=== PATIENT | male | born 1980 | race Caucasian/White ===

== ENCOUNTER 2020-03-26 03:15 | Inpatient (IN) | payer OTHER ==
[~2020-03-26] VITALS: Ht 170.2 cm; Wt 59.0 kg
--- NOTE | 2020-03-26 03:15 | NUR ---
JESSICA LI, PREBOOK. TAKEN TO CHAIR A
[2020-03-26 03:20] VITALS: BP 132/88
--- NOTE | 2020-03-26 03:30 | NUR ---
PT BIB [place] [employer] for rapid heart rate. PT denies CP or SOB
--- NOTE | 2020-03-26 03:38 | NUR ---
EKG BEING PERFORMED AT BEDSIDE.
--- NOTE | 2020-03-26 03:41 | NUR ---
Dr. Amaya examining patient.
--- NOTE | 2020-03-26 04:05 | NUR ---
PT MOVED TO ER BED 6
--- NOTE | 2020-03-26 04:06 | NUR ---
X-Ray at bedside.
[2020-03-26] MEDS ORDERED: NACL 0.9% 1,000 ML IV ONE (04:10)
[2020-03-26 04:22] LABS: BASOPHILS # (AUTO) 0.1 K/uL (0.00-0.22); BASOPHILS % (AUTO) 0.8 % (0.0-2.0); EOSINOPHILS # (AUTO) 0.1 K/uL (0-0.4); EOSINOPHILS % (AUTO) 0.5 % (0.0-4.0); HEMATOCRIT 51.5 % (36-52); HEMOGLOBIN 17.6 g/dL (12.0-18.0); LYMPHOCYTES # (AUTO) 3.1 K/uL (2.0-11.5); LYMPHOCYTES % (AUTO) 29.6 % (20.5-51.1); MEAN CORPUSCULAR HEMOGLOBIN 32 pg (27-31); MEAN CORPUSCULAR HGB CONC 34 g/dL (33-37); MEAN CORPUSCULAR VOLUME 93.4 fL (80-94); MONOCYTES # (AUTO) 0.8 K/uL (0.8-1.0); MONOCYTES % (AUTO) 7.9 % (1.7-9.3); NEUTROPHILS # (AUTO) 6.3 K/uL (1.8-7.7); NEUTROPHILS % (AUTO) 61.2 % (42.2-75.2); PLATELET COUNT (AUTO) 332 K/uL (140-450); RED BLOOD CELL COUNT(AUTO) 5.51 MIL/uL (4.20-6.10); RED CELL DISTRIBUTION WIDTH 13.2 % (11.6-13.7); WHITE BLOOD COUNT (AUTO) 10.3 K/uL (4.8-10.8)
[2020-03-26 04:40] LABS: ANION GAP 19.2 (8-16); CARBON DIOXIDE 20.3 mmol/L (21-32); CREATININE 1.1 mg/dL (0.6-1.3); POTASSIUM 3.5 mmol/L (3.5-5.1)
[2020-03-26 04:46] LABS: ALBUMIN 4.5 g/dL (3.4-5.0); TOTAL BILIRUBIN 0.5 mg/dL (0.0-1.0)
--- NOTE | 2020-03-26 05:06 | NUR ---
PT sleeping in bed, arousable to light touch, AAOx4, PT has no complaints at this time. Officer Norah and Officer Daphney of [facility] at bedside.
--- NOTE | 2020-03-26 05:45 | NUR ---
PER ANNEMARIE LI PT RELASED INTO HOSPITAL'S CARE AND CLEARED BY PD. [place] [facility]- OFFICER NEIL STATED PT WILL RECIVE A TICKET AND COURT DATE FOR WHEN HE IS TO SHOW UP TO COURT. PER J[facility] LI NO CALL NEEDS TO BE MADE DURING PT D/C.
--- NOTE | 2020-03-26 06:51 | NUR ---
ENDORSED TO CHARGE NURSE LUIS THAT [place] [employer] DOES NOT NEED TO BE CALLED WHEN PT IS D/C.
--- NOTE | 2020-03-26 06:54 | NUR ---
GAVE REPORT TO LUIS ROWLAND AND RECIVED BED FOR PT. PT WILL BE GOING TO BED 125 A.
[2020-03-26 07:12] VITALS: BP 118/79
--- NOTE | 2020-03-26 07:12 | NUR ---
Patient will be admitted to care of [facility]. Admited to TELE. Will go to room 125A. Belongings list completed. Report to [place] R[place].
--- NOTE | 2020-03-26 07:12 | NUR ---
RECEIVED REPORT FROM ER NURSE, PT AMBULATED TO BED, PT IS STABLE, AAOX4, NO SIGNS OF DISTRESS NOTED, RESPIRATIONS ARE EVEN AND UNLABORED ON ROOM AIR, PT HAS LEFT FA 18G INFUSING NS AT 100ML/H PER ER NURSE, PT INTRODUCE TO ROOM, BED IN LOW POSITION, SAFETY MEASURES IN PLACE
[2020-03-26 08:00] VITALS: BP 108/52
[2020-03-26] MEDS ORDERED: MORPHINE SULFATE 2 MG/ML SYR IVP PRN (08:45)
[2020-03-26] MEDS ORDERED: LORazepam 2 MG/ML VIAL IM/IVP PRN (08:45)
[2020-03-26] MEDS ORDERED: POTASSIUM CHLORIDE 10 MEQ TABER PO PRN (08:45)
[2020-03-26] MEDS ORDERED: MAG SULF 2000 MG/WATER PREMIX 50 ML IV PRN (08:45)
[2020-03-26] MEDS ORDERED: DOCUSATE SODIUM 100 MG GELCAP PO PRN (08:45)
[2020-03-26] MEDS ORDERED: ONDANSETRON 4 MG/2 ML VIAL IM/IVP PRN (08:45)
[2020-03-26] MEDS ORDERED: ACETAMINOPHEN 325 MG TAB PO PRN (08:45)
[2020-03-26] MEDS ORDERED: ZOLPIDEM 5 MG TAB PO PRN (08:45)
[2020-03-26] MEDS ORDERED: HYDROcodone/APAP 5/325 MG 1 TAB TAB PO PRN (08:45)
[2020-03-26] MEDS ORDERED: NITROGLYCERIN 0.4 MG TAB SL PRN (08:45)
--- NOTE | 2020-03-26 08:45 | NUR ---
PATIENT HAS BEEN SCREENED AND CATEGORIZED MODERATE NUTRITION RISK. PATIENT WILL BE SEEN WITHIN 3-5 DAYS OF ADMISSION. 03/29/20 - 03/31/20 ARNIE NINO MBA, RD
[2020-03-26 09:23] LABS: PROTHROMBIN TIME 9.9 secs (10.8-13.4)
[2020-03-26 09:37] LABS: CHOL/HDL RATIO 3.5 (1-4.5); MAGNESIUM 2.2 mg/dL (1.8-2.4); PHOSPHORUS 4.5 mg/dL (2.5-4.9); THYROID STIMULATING HORMONE 0.67 uIU/mL (0.34-3.74)
[2020-03-26] MEDS: METOPROLOL 25 MG TAB PO SCH ×2 (09:41→20:18)
[2020-03-26] MEDS: ASPIRIN 325 MG TAB PO SCH (09:42)
[2020-03-26] MEDS: lisinopriL 5 MG TAB PO SCH (09:42)
[2020-03-26] MEDS: INDOMETHACIN 25 MG CAP PO SCH ×3 (09:43→16:59)
--- NOTE | 2020-03-26 09:51 | NUR ---
administered SCHEDULED MEDICATION, MEDICATION EDUCATION GIVEN, PT TOLERATED MEDICATION WELL, PT IS STABLE, CALL LIGHT WITHIN REACH.
--- NOTE | 2020-03-26 11:30 | NUR ---
PT RESTING IN BED, NO SIGNS OF DISTRESS NOTED, CALL LIGHT WITHIN REACH.
[2020-03-26 12:00] VITALS: BP 149/91
--- NOTE | 2020-03-26 13:23 | NUR ---
ADMINISTERED SCHEDULED MEDICATION, MEDICATION EDUCATION GIVEN, PT VERBALIZED UNDERSTANDING, PT TOLERATED WELL, PT IS STABLE, CALL LIGHT WITHIN REACH.
--- NOTE | 2020-03-26 15:00 | NUR ---
PT RESTING IN ROOM TALKING ON THE PHONE, PT IS STABLE, NO SIGNS OF DISTRESS NOTED, RESPIRATIONS ARE EVEN AND UNLABORED ON ROOM AIR, CALL LIGHT WITHIN REACH.
[2020-03-26 16:00] VITALS: BP 113/72
--- NOTE | 2020-03-26 17:00 | NUR ---
ADMINISTERED SCHEDULED MEDICATION, MEDICATION EDUCATION GIVEN, PT VERBALIZED UNDERSTANDING, PT TOLERATED WELL, PT IS STABLE, NO SIGNS OF DISTRESS NOTED, CALL LIGHT WITHIN REACH.
--- NOTE | 2020-03-26 19:18 | NUR ---
ENDORSE PT TO NIGHT NURSE FOR CONTINUITY OF CARE, PT IS STABLE
--- NOTE | 2020-03-26 19:19 | NUR ---
RECEIVED BEDSIDE ENDORSEMENT FROM JANETT GUZMAN. PATIENT LYING IN BED SEMI FOWLERS, NO SOB, DENIES PAIN SAFETY MEASURES IN PLACE, PLAN OF CARE DISCUSSED, CALL LIGHT WITHIN REACH.
[2020-03-26 20:00] VITALS: BP 151/98
[2020-03-26] MEDS: ATORVASTATIN 20 MG TAB PO SCH (20:17)
--- NOTE | 2020-03-26 20:26 | NUR ---
DUE MEDS ADMINISTERED ORDERED, TOLERATED WELL.
[2020-03-27] VITALS: BP 97/62
--- NOTE | 2020-03-27 | NUR ---
V/S TAKEN, DENIES PAIN, NO SOB, KEPT COMFORTABLE, CALL LIGHT WITHIN REACH.
[2020-03-27 04:00] VITALS: BP 106/61
--- NOTE | 2020-03-27 04:00 | NUR ---
V/S TAKEN, WNL. NO SOB, DENIES PAIN, CALL LIGHT WITHIN REACH.
[2020-03-27 06:03] LABS: BASOPHILS % (AUTO) 0.6 % (0.0-2.0); EOSINOPHILS # (AUTO) 0.2 K/uL (0-0.4); EOSINOPHILS % (AUTO) 3.5 % (0.0-4.0); HEMATOCRIT 44.5 % (36-52); HEMOGLOBIN 15.4 g/dL (12.0-18.0); LYMPHOCYTES # (AUTO) 2.8 K/uL (2.0-11.5); LYMPHOCYTES % (AUTO) 40.5 % (20.5-51.1); MEAN CORPUSCULAR HEMOGLOBIN 32 pg (27-31); MEAN CORPUSCULAR HGB CONC 35 g/dL (33-37); MEAN CORPUSCULAR VOLUME 92.5 fL (80-94); MONOCYTES # (AUTO) 0.7 K/uL (0.8-1.0); MONOCYTES % (AUTO) 10.4 % (1.7-9.3); NEUTROPHILS # (AUTO) 3.1 K/uL (1.8-7.7); PLATELET COUNT (AUTO) 293 K/uL (140-450); RED BLOOD CELL COUNT(AUTO) 4.82 MIL/uL (4.20-6.10); RED CELL DISTRIBUTION WIDTH 13.5 % (11.6-13.7); WHITE BLOOD COUNT (AUTO) 6.8 K/uL (4.8-10.8)
[2020-03-27 06:27] LABS: CARBON DIOXIDE 24.4 mmol/L (21-32); CREATININE 0.8 mg/dL (0.6-1.3); POTASSIUM 3.4 mmol/L (3.5-5.1)
--- NOTE | 2020-03-27 06:27 | NUR ---
NOT IN ANY DISTRESS, NO PAIN NOTED, NO SOB, ALL NEEDS ATTENDED, CALL LIGHT WITHIN REACH.
[2020-03-27 06:49] LABS: PHOSPHORUS 3.4 mg/dL (2.5-4.9)
--- NOTE | 2020-03-27 07:05 | NUR ---
RECEIVED REPORT FROM NIGHT NURSE FOR CONTINUITY OF CARE, PT IS STABLE, PT IS ASLEEP, RESPIRATIONS ARE EVEN AND UNLABORED ON ROOM AIR, PT HAS LEFT FA 18G SALINE LOCK, BED IN LOW POSITION, SAFETY MEASURES IN PLACE, WILL INTRODUCE SELF AND UPDATE WHITEBOARD, CALL LIGHT WITHIN REACH.
[2020-03-27 08:00] VITALS: BP 100/69
[2020-03-27] MEDS: INDOMETHACIN 25 MG CAP PO SCH ×3 (09:00→17:11)
[2020-03-27] MEDS: ASPIRIN 325 MG TAB PO SCH (09:00)
[2020-03-27] MEDS: METOPROLOL 25 MG TAB PO SCH ×2 (09:00→20:33)
[2020-03-27] MEDS: lisinopriL 5 MG TAB PO SCH (09:00)
--- NOTE | 2020-03-27 09:05 | NUR ---
ADMINISTERED SCHEDULED MEDICATION, MEDICATION EDUCATION PROVIDED, PT VERBALIZED UNDERSTANDING, PT TOLERATED WELL, PT IS STABLE, NO SIGNS OF DISTRESS NOTED, CALL LIGHT WITHIN REACH.
[2020-03-27 09:06] LABS: T4 (THYROXINE) 7.9 ug/dL (4.5-12.0)
[2020-03-27 09:59] LABS: APPEARANCE,URINE CLEAR (CLEAR); BILIRUBIN,URINE 1+ (NEGATIVE); BLOOD, URINE NEGATIVE (NEGATIVE); COLOR,URINE YELLOW (YELLOW); LEUKOCYTE ESTERASE ,URINE NEGATIVE (NEGATIVE); NITRITE, URINE NEGATIVE (NEGATIVE); UGLUCOSE NEGATIVE (NEGATIVE)
[2020-03-27 10:16] LABS: RBC,URINE NONE SEEN /HPF (0-5); WBC,URINE NONE SEEN /HPF (0-5)
[2020-03-27 10:18] LABS: BARBITURATE, URINE NEGATIVE ng/ml (NEG <=200); BENZODIAZEPINE, URINE NEGATIVE ng/mL (NEG <=200); CANNABINOID, URINE POSITIVE ng/mL (NEG <=50); COCAINE, URINE NEGATIVE ng/mL (NEG <=300); OPIATE, URINE NEGATIVE ng/mL (NEG <=2000); PHENCYCLIDINE SCREEN,URINE NEGATIVE ng/mL (NEG <=25)
--- NOTE | 2020-03-27 11:40 | NUR ---
PT RESTING IN BED, NO SIGNS OF DISTRESS NOTED, CALL LIGHT WITHIN REACH.
--- NOTE | 2020-03-27 11:48 | NUR ---
[employer]QUE [employer] M[employer]UM MAINTENANCE WORKER NOTE: Patient's Orientation Unable To Assess Information Provided By JEAN NIELSEN - Comments SW WAS UNABLE TO MEET PATIENT AT BEDSIDE. SW CONTACTED PATIENT'S , JEAN TO COMPLETE ASSESSMENT. Data Warehousing Architect, Realtionship and Phone Number JEAN CHOW [phone] Healthcare Power of Teaching Young No Does Patient Have a POLST No Identifying Problems No Social Work Triggers Is A Social Work Consult Needed No Mandate Report Filed No Explanation Of Identifying Problems PATIENT IS A 39-YEAR-OLD MALE ADMITTED FOR PERICARDITIS. PATIENT DENIED PMHX. Admitted From Home Pre-Admission Level Of Functioning Status Independent/Ambulatory Prior Resources/Services Used In Last 12 Months No Prior Resources Used Prior DME No Prior DME Used Living Situation Apartment Lives With Family Patient Had Caregiver No Home Support No Caregiver Issues Financial Issues No Known Financial Issue Referral To The Financial Counselor Needed No Factors/Needs No D/C Needs Identified Pt/Rep Participated In Discharge Plan Yes Patient/Family Agress With Discharge Plan Yes Discharge Plan Comments TENTATIVE DISCHARGE PLAN IS FOR PATIENT TO RETURN HOME. DC Plan Status Initiated
[2020-03-27 12:00] VITALS: BP 134/93
--- NOTE | 2020-03-27 14:03 | NUR ---
ADMINISTERED SCHEDULED MEDICATION, MEDICATION EDUCATION PROVIDED, PT TOLERATED MEDICATION WELL, PT IS STABLE, NO SIGNS OF DISTRESS NOTED, CALL LIGHT WITHIN REACH.
--- NOTE | 2020-03-27 14:47 | NUR ---
DISCHARGE PLANNING: THIS IS A 39 Y/O MALE PATIENT FROM HOME, WHO CAME IN DUE TO SOB, PALPITATIONS AND TACHYCARDIA. NO PAST MEDICAL HISTORY. INITIAL DIAGNOSIS OF PERICARDITIS. CURRENT LABS INCLUDE WBC 6.8, H/H 15.4/44.5, NA/K 140/3.4, BUN/CREA 16/0.8, TROP <0.017. CARDIO CONSULT IN PLACE, NOT SEEN YET. DC PLAN BACK TO HOME ONCE STABLE.
[2020-03-27 16:00] VITALS: BP 141/84
--- NOTE | 2020-03-27 17:12 | NUR ---
ADMINISTERED SCHEDULED MEDICATION, MEDICATION EDUCATION PROVIDED, PT VERBALIZED UNDERSTANDING, PT TOLERATED WELL, PT IS STABLE, NO SIGNS OF DISTRESS NOTED, CALL LIGHT WITHIN REACH.
--- NOTE | 2020-03-27 19:20 | NUR ---
ENDORSE PT TO NIGHT NURSE FOR CONTINUITY OF CARE, PT IS STABLE
--- NOTE | 2020-03-27 19:21 | NUR ---
RECD. RESTING IN BED, AWAKE, A/OX4. RESPIRATION EVEN AND UNLABORED. IV SALINE LOCK AT THE LEFT FOREARM G18, PATENT AND INTACT. AMBULATORY TO THE BATHROOM. PLAN OF CARE FOR THE SHIFT DISCUSSED. VERBALIZED UNDERSTANDING. DENIES PAIN 0/10. SR ON TELE MONITORING.
[2020-03-27 20:00] VITALS: BP 169/95
--- NOTE | 2020-03-27 20:00 | NUR ---
Patient's Plan of Care was discussed and reviewed with COORDINATOR OF LIBRARY SERVICES: CHER TINOCO
[2020-03-27] MEDS: ATORVASTATIN 20 MG TAB PO SCH (20:32)
--- NOTE | 2020-03-27 20:33 | NUR ---
BP - 169/95, HR -93. DUE METOPROLOL AND OTHER MEDICATIONS FOR THE NIGHT GIVEN.
[2020-03-28] VITALS: BP 120/84
--- NOTE | 2020-03-28 | NUR ---
SLEEPING COMFORTABLY IN BED.
--- NOTE | 2020-03-28 02:00 | NUR ---
COMFORTABLE IN BED ASLEEP, SR ON TELE MONITORING.
--- NOTE | 2020-03-28 03:15 | NUR ---
ENDORSED TO CHARGE NURSE YOLANDA FOR CONTINUITY OF CARE.
[2020-03-28 04:00] VITALS: BP 125/78
--- NOTE | 2020-03-28 04:00 | NUR ---
report of pt in stable condition received from kendall blankenship lvn.pt is sleeping w/o s/s of any distress,hr is sr.vs stable.call light in reach.will continue monitoring.
[2020-03-28 05:56] LABS: BASOPHILS # (AUTO) 0.1 K/uL (0.00-0.22); BASOPHILS % (AUTO) 1.5 % (0.0-2.0); EOSINOPHILS # (AUTO) 0.2 K/uL (0-0.4); EOSINOPHILS % (AUTO) 2.4 % (0.0-4.0); HEMATOCRIT 44.8 % (36-52); HEMOGLOBIN 15.3 g/dL (12.0-18.0); LYMPHOCYTES # (AUTO) 2.4 K/uL (2.0-11.5); LYMPHOCYTES % (AUTO) 31.9 % (20.5-51.1); MEAN CORPUSCULAR HEMOGLOBIN 32 pg (27-31); MEAN CORPUSCULAR HGB CONC 34 g/dL (33-37); MONOCYTES # (AUTO) 0.7 K/uL (0.8-1.0); MONOCYTES % (AUTO) 9.5 % (1.7-9.3); NEUTROPHILS # (AUTO) 4.2 K/uL (1.8-7.7); NEUTROPHILS % (AUTO) 54.7 % (42.2-75.2); PLATELET COUNT (AUTO) 264 K/uL (140-450); RED BLOOD CELL COUNT(AUTO) 4.76 MIL/uL (4.20-6.10); RED CELL DISTRIBUTION WIDTH 13.5 % (11.6-13.7); WHITE BLOOD COUNT (AUTO) 7.7 K/uL (4.8-10.8)
--- NOTE | 2020-03-28 07:00 | NUR ---
RECEIVED REPORT FROM PM JANETT TRUONG. PT CAME FROM HOME. C/O PREBLOCK, ST. DX: PERICARDITIS. PT IS ON STANDARD PRECAUTIONS. TELE: SR. PT HAS A LT FA 18G SL. PT IS AMBULATORY. A&OX4. SKIN IS INTACT. MONITOR LABS. LUNG SOUNDS CLEAR, PT IS ON RA. PLAN: MONITOR LABS, POSSIBLE DC.
[2020-03-28 07:12] LABS: POTASSIUM 3.5 mmol/L (3.5-5.1)
[2020-03-28 07:13] LABS: ANION GAP 14.6 (8-16); CARBON DIOXIDE 22.9 mmol/L (21-32); CREATININE 0.8 mg/dL (0.6-1.3); PHOSPHORUS 3.6 mg/dL (2.5-4.9)
--- NOTE | 2020-03-28 07:31 | NUR ---
SLEPT WELL.NO C/O PAIN OR SOB AT THIS TIME.ENDORSED TO AM RN IN STABLE CONDITION.
[2020-03-28] MEDS: lisinopriL 5 MG TAB PO SCH (08:20)
[2020-03-28] MEDS: ASPIRIN 325 MG TAB PO SCH (08:21)
[2020-03-28] MEDS: METOPROLOL 25 MG TAB PO SCH (08:21)
--- NOTE | 2020-03-28 09:00 | NUR ---
PASSED MEDICATIONS TO PT. PT TOLERATED WELL. DENIES PAIN. PT IS RESTING IN BED, AWAKE. RESPIRATIONS ARE EVEN AND UNLABORED.
[2020-03-28] MEDS: INDOMETHACIN 25 MG CAP PO SCH ×2 (09:11→13:41)
--- NOTE | 2020-03-28 11:00 | NUR ---
RECEIVED DC ORDER FROM DR. LYNN. DISCUSSED DC PLAN WITH PT. PT WILL BE GOING HOME AT 1300 VIA PRIVATE VEHICLE WITH FAMILY MEMBER.
[2020-03-28 12:00] VITALS: BP 122/67
[2020-03-28 12:12] VITALS: BP 122/67
--- NOTE | 2020-03-28 12:57 | NUR ---
GAVE DC INSTRUCTIONS TO PT. PT VERBALIZES UNDERSTANDING. ALL QUESTIONS WERE ANSWERED. PT DENIES PAIN.
== END 2020-03-28 14:12 | disposition home or self-care (01) | DRG 310 ==
LOC: MED 03:15 → MTU 04:10 → MMU 06:12
DX: R00.0 Tachycardia, unspecified (principal); E87.6 Hypokalemia; F19.10 Other psychoactive substance abuse, uncomplicated; E78.5 Hyperlipidemia, unspecified; I10 Essential (primary) hypertension; E11.9 Type 2 diabetes mellitus without complications
CPT/HCPCS: 36415; 71045; 80048; 80053; 80305; 81001; 82150; 83036; 83690; 83735; 83880; 84100; 84134; 84436; 84443; 84484; 85025; 85610; 85730; 87081; 93005; 96360; 96361; 99285; J1644; J7030; Q0092